=== PATIENT | female | born 1985 | race African-American/Black ===

== ENCOUNTER 2024-04-28 16:39 | Emergency (ER) | payer OTHER ==
[~2024-04-28] VITALS: Ht 162.6 cm; Wt 117.9 kg
[2024-04-28 16:56] VITALS: TEMP 97.7
[2024-04-28] MEDS ORDERED: HYDROXYZINE HCL25 MG PO (17:46)
[2024-04-28] MEDS ORDERED: SERTRALINE HCL50 MG PO (17:46)
[2024-04-28 18:09] VITALS: PULSE 80; RESP 16; O2SAT 98
== END 2024-04-28 18:16 | disposition home or self-care (01) ==
LOC: FSED 16:51
DX: R07.9 Chest pain, unspecified (principal); Z91.09 Other allergy status, other than to drugs and biological substances
CPT/HCPCS: 71046; 80053; 82553; 84484; 85025; 93005; 99284

== ENCOUNTER 2024-06-21 01:04 | Emergency (ER) | payer OTHER ==
[~2024-06-21] VITALS: Ht 165.1 cm; Wt 109.3 kg
[~2024-06-21 01:04] MED LIST: HYDROXYZINE HCL25 MG PO; SERTRALINE HCL50 MG PO
[2024-06-21 01:20] VITALS: PULSE 79; RESP 18; TEMP 98.6
[2024-06-21] MEDS: MAGNESIUM/ALUMINUM/SIMETHICONE 30 ML UDC PO ONE (02:17)
[2024-06-21] MEDS: LIDOCAINE VISC 2% SOLN 15 ML UDC PO ONE (02:17)
[2024-06-21] MEDS: BELLADONNA ALK/PHENOBARBITAL 5 ML UDC PO ONE (02:18)
[2024-06-21] MEDS ORDERED: KETOROLAC TROMETHAMINE 30 MG/ML VIAL ONE (03:12)
[2024-06-21] MEDS: KETOROLAC TROMETHAMINE 30 MG/ML VIAL IV STA (03:38)
[2024-06-21 03:41] VITALS: BP 121/72; PULSE 78; RESP 18; TEMP 98.6; O2SAT 99
== END 2024-06-21 03:46 | disposition home or self-care (01) ==
LOC: FSED 01:17
DX: R10.12 Left upper quadrant pain (principal); F41.9 Anxiety disorder, unspecified
CPT/HCPCS: 71046; 80048; 80076; 85025; 93005; 96374; 99283; J1885

== ENCOUNTER 2025-01-29 09:45 | Emergency (ER) | payer OTHER ==
[~2025-01-29] VITALS: Ht 167.6 cm; Wt 114.3 kg
[2025-01-29 09:48] VITALS: PULSE 91; RESP 18; TEMP 97.2
[2025-01-29 14:21] VITALS: BP 130/67; PULSE 87; RESP 16; TEMP 97.4; O2SAT 98
== END 2025-01-29 14:20 | disposition home or self-care (01) ==
LOC: FSED 09:48
DX: R11.0 Nausea (principal); R07.89 Other chest pain; F41.9 Anxiety disorder, unspecified
CPT/HCPCS: 71046; 80053; 84484; 85025; 93005; 99283